=== PATIENT | female | born 1990 | race Caucasian/White ===

== ENCOUNTER 2019-05-26 13:30 | Outpatient (CLI) | payer OTHER ==
--- NOTE | 2019-05-26 14:22 | ULT ---
ABDOMINAL ULTRASOUND HISTORY: Abdominal pain. FINDINGS: Liver: There is shadowing related to adjacent ribs which limits adequate evaluation of the liver. The liver is not enlarged. There is suggestion of mild coarsened echotexture of the liver which could be related to fatty infiltration.. No obvious hepatic lesion is appreciated. Gallbladder: Not visualized. Patient reports history of prior cholecystectomy. Common duct: Common duct is normal in caliber measuring 4 mm in diameter. Pancreas: The limited visualized pancreas demonstrates a normal sonographic appearance. IVC: Limited visualized IVC has a normal sonographic appearance. Aorta: The aorta is normal in caliber. Spleen: Within normal limits. Kidneys: Kidneys demonstrate a normal sonographic appearance bilaterally with the right kidney measur ing 11.1 cm in length, and the left kidney measures 11.1 cm in length. IMPRESSION: 1. Limited evaluation of the liver due to shadowing from adjacent ribs. In addition there is question of mildly coarsened echotexture which could be related to fatty infiltration which would also limits evaluation. If there is concern for liver pathology or patient has elevated liver function amador ts, CT scan would be helpful for further evaluation. 2. Postcholecystectomy changes.
--- NOTE | 2019-05-26 14:44 | ULT ---
Pelvic ultrasound: 05/26/2019 HISTORY: Pelvic pain TECHNIQUE: Multiplanar grayscale sonographic imaging of the pelvis with transabdominal imaging. Ovari es are assessed with color flow and spectral analysis FINDINGS: No free fluid. Uterus measures 8.6 x 5.2 x 3.6 cm. Normal endometrial stripe measuring 4 mm . Right ovary measures 2.7 x 2.6 x 2.3 cm and left ovary measures 3.1 x 3.2 x 2.6 cm. Ovaries demonstra te normal blood flow. No ovarian/adnexal mass. 1.5 cm left ovarian follicle. Dominant follicle versus small cyst of right ovary noted measuring 2.4 cm. IMPRESSION: No acute findings.
== END 2019-05-26 13:31 | disposition home or self-care (01) ==
LOC: SCSULT 13:30
PROVIDERS: ATTEND Family Medicine
DX: R10.9 Unspecified abdominal pain (principal); Z90.49 Acquired absence of other specified parts of digestive tract
CPT/HCPCS: 76856; 93975; 93976